=== PATIENT | female | born 1950 | race Caucasian/White ===

== ENCOUNTER 2019-01-04 10:54 | Day surgery (SDC) | payer OTHER ==
[2019-01-03 15:33] LABS: Anion Gap 7 mmol/L (6-16); Blood Urea Nitrogen 15 mg/dL (8-24); Bun/Creatinine Ratio 35.5 (12.0-20.0); CO2, Blood 27 mmol/L (21-32); Calcium, Blood 9.1 mg/dL (8.5-10.1); Chloride, Blood 101 mmol/L (98-108); Creatinine, Blood 0.42 mg/dL (0.40-1.00); Glomerular Filtration Rate >60 (60-); Glucose, Blood 466 mg/dL (70-99); Potassium, Blood 4.1 mmol/L (3.5-5.5); Sodium, Blood 135 mmol/L (136-145)
[~2019-01-04] VITALS: Ht 152.4 cm; Wt 64.9 kg
[~2019-01-04 10:54] MED LIST: ALBU90OI61 INH; ATOR10 PO; INSULANPEN SC; Lisinopril2.5 MG PO; METF500 PO; PARO10 PO
[2019-01-04] MEDS ORDERED: TRULICITY0.75 MG/0. SC (11:22)
--- NOTE | 2019-01-04 11:52 | NUR ---
"DAY SURGERY | HAND-OFF TO [facility] Report to [facility]. Handoff of medications to [facility], including 10 mg of Oxycontin."
--- NOTE | 2019-01-04 17:38 | NUR ---
Patient up to Ambulate independently. Gait steady. STANDBY ASSIST. Discharge instructions reviewed with patient. Patient verbalizes understanding. Copy given to patient to take home. Patient States Post-Procedure ride home has been arranged. Discharged via wheelchair to private car for ride home. ICE/ELEVATE, KEEP DRY, PT TO TAKE BLOOD SUGAR ON ARRIVAL HOME AND ADMINISTER SCHEDULED DOSE OF INSULIN. FAMILY TO F/U WITH PT'S PCP FOR ISSUE OF BETTER CONTROL OF BLOOD SUGARS AND TO DISCUSS POSSIBLE SSC. PT HAS KNOW SLEEP APNEA AND HAS PREVIOUSLY REFUSED CPAP-FAMILY TO EXPLORE DIFF CPAP DEVICES/OPTIONS WITH PCP.
--- NOTE | 2019-01-05 12:36 | NUR ---
01/05/19 1236 Siena Nickerson VERIFICATIONS: EDIT CHART.
== END 2019-01-04 23:13 | disposition home or self-care (01) ==
LOC: ORSCMMR 10:54
PROVIDERS: Orthopaedic Surgery
PROC: 0PSF04Z Reposition Right Humeral Shaft with Internal Fixation Device, Open Approach (ICD-10-PCS; principal; 2019-01-04 12:15)
DX: S42.451A Displaced fracture of lateral condyle of right humerus, initial encounter for closed fracture (principal); E11.9 Type 2 diabetes mellitus without complications; I10 Essential (primary) hypertension; J45.909 Unspecified asthma, uncomplicated; Z79.4 Long term (current) use of insulin; Z79.899 Other long term (current) drug therapy
CPT/HCPCS: 36415; 80048; 82947; 93005; 93010; C1713; J0690; J1100; J1815; J1885; J2370; J2405; J2704; J3010; J7120

== ENCOUNTER 2019-07-20 11:05 | Day surgery (SDC) | payer OTHER ==
[~2019-07-20] VITALS: Ht 152.4 cm; Wt 63.8 kg
[~2019-07-20 11:05] MED LIST changes: +TRULICITY0.75 MG/0. SC
--- NOTE | 2019-07-20 11:59 | NUR ---
07/20/19 1158 Kerrie Agee 1 TRY RIGHT HAND VEIN BLEW 2 TRY LEFT HAND GOOD
--- NOTE | 2019-07-20 14:09 | NUR ---
07/20/19 1409 Lovely Luna PATIENT SNORING LOUDLY AND RETCHING DURING CASE, MAINTAINING O2 SATS BETWEEN 92-96% ON 5L. TOWARDS THE END OF CASE, PT DESATS DOWN TO 62%, JAW THRUST UNSUCCESSFUL IN BRINGING UP SATURATION, REBREATHER MASK PUT ON, ANESTHESIA CALLED IN. PT STARTS TO WAKE, SATS RISE INTO 90S, PT DENIES PAIN, SLIGHT COUGH NOTED. PT NEEDS ANESTHESIA SUPPORT DURING FUTURE CASES DUE TO SEVERE SLEEP APNEA.
== END 2019-07-20 13:59 | disposition home or self-care (01) ==
LOC: ORSCSDS 11:05
PROVIDERS: Student in an Organized Health Care Education/Training Program
PROC: 0DB58ZX Excision of Esophagus, Via Natural or Artificial Opening Endoscopic, Diagnostic (ICD-10-PCS; principal; 2019-07-20 14:30)
PROC: 0DB98ZX Excision of Duodenum, Via Natural or Artificial Opening Endoscopic, Diagnostic (ICD-10-PCS; principal; 2019-07-20 14:30)
PROC: 0DB68ZX Excision of Stomach, Via Natural or Artificial Opening Endoscopic, Diagnostic (ICD-10-PCS; principal; 2019-07-20 14:30)
DX: K21.0 Gastro-esophageal reflux disease with esophagitis (principal); R13.10 Dysphagia, unspecified; K31.7 Polyp of stomach and duodenum; K29.80 Duodenitis without bleeding; K44.9 Diaphragmatic hernia without obstruction or gangrene; E11.9 Type 2 diabetes mellitus without complications; J45.909 Unspecified asthma, uncomplicated; Z79.4 Long term (current) use of insulin; Z79.899 Other long term (current) drug therapy
CPT/HCPCS: 82947; 88305; 88312; 88342; J2704; J7120

== ENCOUNTER → 2021-11-07 | Outpatient (CLI) | payer OTHER | LOC: LAB SHORT 12:30 | DX: E11.65 Type 2 diabetes mellitus with hyperglycemia (principal) | CPT/HCPCS: 82043 ==

== ENCOUNTER 2022-09-27 09:04 | Emergency (ER) | payer OTHER ==
[~2022-09-27] VITALS: Ht 152.4 cm; Wt 63.5 kg
[2022-09-27] MEDS ORDERED: AMOCLA875 PO (11:03)
[2022-09-27] MEDS ORDERED: OXAYDO5 M1 PO (11:03)
== END 2022-09-27 11:25 | disposition home or self-care (01) ==
LOC: ER 09:04
DX: K04.7 Periapical abscess without sinus (principal); E11.9 Type 2 diabetes mellitus without complications; Z79.4 Long term (current) use of insulin; Z79.899 Other long term (current) drug therapy
CPT/HCPCS: A9270